=== PATIENT | male | born 1995 | race Caucasian/White ===

== ENCOUNTER 2016-08-07 15:49 | Emergency (ER) | payer OTHER ==
[~2016-08-07] VITALS: Ht 193 cm; Wt 79.4 kg
[2016-08-07 15:50] VITALS: BP 146/94; PULSE 89; RESP 17; TEMP 97.4; O2SAT 97
--- NOTE | 2016-08-07 15:50 | NUR ---
DIANNA HERRERA, PLACED IN HALLWAY CHAIR. RIGHT HANDCUFFED TO CHAIR.
--- NOTE | 2016-08-07 15:52 | NUR ---
DR. COLIN EVALUATING PT AT THIS TIME
[2016-08-07 16:05] VITALS: BP 146/94; PULSE 89; RESP 17; TEMP 97.4; O2SAT 97
--- NOTE | 2016-08-07 16:05 | NUR ---
Patient given written and verbal discharge instructions and verbalizes understanding. ER MD discussed with patient the results and treatment provided. Patient in stable condition. ID arm band removed. NO Rx given. Patient educated on pain management and to follow up with PMD. Pain Scale 3/10 chronic back. Opportunity for questions provided and answered. Exit care signed by [place]
== END 2016-08-07 16:05 ==
LOC: SED 15:49
DX: Z02.89 Encounter for other administrative examinations (principal)
CPT/HCPCS: 99283